=== PATIENT | female | born 1995 | race Caucasian/White ===

== ENCOUNTER 2019-06-13 15:02 | Inpatient (IN) | payer BC, OTHER ==
[~2019-06-13] VITALS: Ht 170.2 cm; Wt 82.1 kg
--- NOTE | ~2019-06-13 | O ---
[facility] [place] [address] OPERATIVE REPORT Name: DONI ALI Room #: 363-P [facility] M.R.#: [id number] Admission: 06/13/19 Attend Phys: Giselle Winter MD Discharge: Date of : 97 Report #: [id number] THIS REPORT FOR: //name// CC: Giselle Winter PREOPERATIVE DIAGNOSIS: Hyperkinesia of the gallbladder. POSTOPERATIVE DIAGNOSIS: Hyperkinesia of the gallbladder. OPERATIVE PROCEDURE DONE: Laparoscopic cholecystectomy. OPERATING SURGEON: Russel Gabriel MD INDICATIONS FOR THE PROCEDURE: The patient is a 23-year-old pleasant female who has multiple medical comorbidities, presented with features of recurrent episodes of right upper quadrant and epigastric pain. A HIDA scan that was done showed features of a hyperkinetic gallbladder. The patient was advised laparoscopic cholecystectomy. The patient showed understanding and agreed to proceed. DESCRIPTION OF PROCEDURE: After explaining to the patient in detail and informed consent was obtained, the patient was identified in the preoperative holding area. The patient was transferred to the operating room and was placed in supine position. After induction of anesthesia, the abdomen was prepped and draped in a sterile fashion. Through a right upper quadrant 1 cm incision and using Optiview technique, peritoneal cavity was entered and pneumoperitoneum was created. Thereafter, under direct vision, another 5 mm trocar was placed in the epigastrium and one in the periumbilical region through the previous incision site and another 5 mm trocar was placed in the right flank. On initial inspection, the gallbladder appeared slightly intrahepatic, but otherwise normal. The gallbladder was retracted and the peritoneal reflection along the neck of the gallbladder was gently dissected off. Soft cystic duct was identified and was isolated from the surrounding structures. Cystic artery was identified and was isolated from the surrounding structures. Cystic duct was then double clipped proximally and single clipped applied distally and was then divided. Cystic artery was then divided in a similar fashion. The gallbladder was gently dissected off the liver bed using hook electrocautery. Absolute hemostasis was achieved. Thorough saline irrigation was given. The gallbladder was retrieved using an EndoCatch through the lateral most incision. Incisions were then closed with 4-0 Monocryl. The 8 mm port site incision was closed with 0 Vicryl for the fascia. Skin was closed with 4-0 Monocryl for the incisions. Approximately about 10 mL of lidocaine and Marcaine mix was injected into all the incisions. The patient was awoken from anesthesia and was transferred to the recovery room in stable condition. ESTIMATED BLOOD LOSS: Minimal. [address] [address] OPERATIVE REPORT Name: DONI LAI Room #: 363-P [facility]#: [id number] Admission: 06/13/19 Attend Phys: Giselle Winter MD Discharge: Date of : 97 Report #: [id number] CONDITION OF THE PATIENT: Stable. FLUIDS GIVEN: Per anesthesia notes. SPECIMEN SENT: Gallbladder. COMPLICATIONS: None. ANESTHESIA: General anesthesia. By: [id number] [id number] Russel Gabriel MD /qian
[2019-06-13 15:04] VITALS: BP 132/77
[2019-06-13 15:21] LABS: URINE BILIRUBIN NEGATIVE (Negative); URINE BLOOD NEGATIVE (Negative); URINE CLARITY CLEAR; URINE COLOR YELLOW; URINE GLUCOSE-RANDOM* NEGATIVE (Negative); URINE KETONES NEGATIVE (Negative); URINE LEUKOCYTES-REFLEX NEGATIVE (Negative); URINE NITRITE-REFLEX NEGATIVE (Negative); URINE PROTEIN (DIPSTICK) NEGATIVE (Negative); URINE SPECIFIC GRAVITY 1.015 (1.005-1.035); URINE UROBILINOGEN 0.2 E.U./dl (0.2-1.0)
[2019-06-13 15:42] LABS: ABSOLUTE NEUTROPHILS 5.9 thou/uL (1.4-8.2); BASOPHILS 0.5 % (0.0-2.0); EOSINOPHILS 0.9 % (0.0-3.0); HEMATOCRIT 37.7 % (37.0-47.0); HEMOGLOBIN 12.3 gm/dL (12.0-15.0); LYMPHOCYTES 16.6 % (24.0-44.0); MCH 29.3 pg (26.0-34.0); MCHC 32.5 g/dL (28.0-37.0); MCV 89.9 fL (80.0-100.0); MONOCYTES 5.5 % (1.0-8.0); PLATELET COUNT 418 thou/uL (150-400); POLYS 76.5 % (36.0-66.0); RBC 4.19 mil/uL (4.20-5.00); RDW 14.6 % (10.5-14.5); WBC 7.6 thou/uL (4.0-11.0)
[2019-06-13 15:49] LABS: CALCIUM 9.8 mg/dL (8.5-10.1); CREATININE 0.7 mg/dL (0.6-1.0); POTASSIUM 3.9 mmol/L (3.5-5.1)
[2019-06-13 15:55] LABS: ALBUMIN 4.1 g/dL (3.4-5.0); TOTAL BILIRUBIN 0.5 mg/dL (<0.1-1.0)
[2019-06-13] MEDS ORDERED: ANECREAM530 GM TOP (16:01)
[2019-06-13] MEDS ORDERED: ZANTAC 150MG T150 M1 PO ×2 (16:01→20:04)
[2019-06-13] MEDS ORDERED: INDERAL LA120 M1 PO (16:03)
[2019-06-13] MEDS ORDERED: MIDODRINE HCL10 MG PO (16:06)
[2019-06-13] MEDS ORDERED: TYLENOL325 M1 PO (16:07)
[2019-06-13] MEDS ORDERED: DEXILANT60 MG PO (16:07)
[2019-06-13] MEDS ORDERED: LEVO-T100 MCG PO (16:08)
[2019-06-13] MEDS ORDERED: ZOLMITRIPTAN ODT5 MG PO (16:09)
[2019-06-13] MEDS ORDERED: AZELASTINE205.5 MCG/ NARES (16:10)
[2019-06-13] MEDS ORDERED: ONDANSETRON ODT8 MG PO (16:10)
[2019-06-13] MEDS ORDERED: BLISOVI 24 FE1 EACH PO (16:10)
[2019-06-13] MEDS ORDERED: SENNA PLUS TAB1 EACH PO (16:11)
[2019-06-13] MEDS ORDERED: FLONASE 0.05%50 MCG NARES (16:11)
[2019-06-13] MEDS ORDERED: VITAMIN D31000 UNIT PO (16:11)
[2019-06-13] MEDS ORDERED: CLARITIN10 M3 PO (16:11)
[2019-06-13] MEDS ORDERED: VENLAFAXINE HCL75 M2 PO (16:12)
[2019-06-13] MEDS ORDERED: COLACE 100 MG100 MG PO (16:12)
[2019-06-13] MEDS ORDERED: IPRATROPIUM BRO15 ML NASAL (16:13)
[2019-06-13 17:40] VITALS: BP 115/87
--- NOTE | 2019-06-13 18:35 | NUR ---
ATTEMPTED TO CALL REPORT AT THIS TIME TO 3W. NURSE NOT AVAILABLE AT THIS TIME AND WILL CALL BACK
[2019-06-13 18:47] VITALS: BP 111/68
[2019-06-13] MEDS ORDERED: AMITIZA8 MCG PO (20:09)
[2019-06-13] MEDS ORDERED: REGLAN 10 MG TA10 MG PO (20:10)
[2019-06-13] MEDS ORDERED: PHENERGAN 25 MG25 M1 PO (20:11)
[2019-06-13] MEDS ORDERED: OXYCODONE HCL20 M1 PO (20:13)
[2019-06-13] MEDS ORDERED: FLEXERIL PO (20:14)
[2019-06-13 20:30] VITALS: BP 111/72
[2019-06-13 23:45] VITALS: BP 114/66
--- NOTE | 2019-06-14 06:27 | NUR ---
PT ARRIVED TO UNIT APPROX 1900. ADMISSION AND ASSESSMENT COMPLETED, CONSENTS SIGNED, MED REC COMPLETED. OBTAINED MEDICATION AND DIET ORDERS FROM DR. MOE. PT A&Ox4, PLEASANT, USES WALKER TO AMBULATE AT HOME; EXTENSIVE MEDICAL AND SURGICAL HISTORY, PT HAS A BINDER WITH HISTORY. FALL PRECAUTIONS IN PLACE. PT HAD BACK SURGERY 05/02/19, CONTINUES TO HAVE MODERATE-HIGH PAIN ALONG WITH NAUSEA; RESUMED HOME DOSES PAIN AND NAUSEA MEDS, DR. MOE DIDN'T ORDER ANY IV PAIN MEDS. IV FLUIDS STARTED THROUGH CHEST PORT. HAS BEEN SR IN 60-70'S OVERNIGHT. NO OTHER CONCERNS, WILL CONTINUE TO MONITOR.
[2019-06-14 07:46] VITALS: BP 129/89
--- NOTE | 2019-06-14 10:45 | NUR ---
ASSESSMENT: CM REVIEWED CHART AND MET WITH PATIENT AND HER MOTHER AT THE BEDSIDE. PT WAS ADMITTED WITH PANCREATITIS/FEVER. PT HAS HX OF POT SYNDROME AND IS ON IV INFUSIONS OF NS DAILY AT HOME. PT LIVES AT HOME WITH HER PARENTS WHO ARE VERY SUPPORTIVE. PT HAS TWO STEPS TO ENTER THE HOME AND ABOUT 20 STEPS WITH A HANDRAIL TO HER BEDROOM. PT REPORTS THAT SHE CURRENTLY HAS ON LICENSE OF [facility] AND GETS IV FLUIDS THROUGH [facility]. CM CONTACTED [facility] TO NOTIFY THEM THAT PATIENT IS HERE AND FAXED CLINICAL. CM ALSO CONTACTED [facility] [phone] TO NOTIFY THEM PATIENT WAS HERE. THEY STATE AT DISCHARGE THEY WILL JUST NEED AN ORDER FOR RESUMPTION OF FLUIDS (CURRENT ORDER IS NORMAL SALINE 1 LITER IV) THROUGH WHATEVER DATE WE WOULD LIKE. PT WILL LIKELY BE HERE THROUGH THE WEEKEND. [facility]:[phone] FAX:[phone] [facility]:[phone].
[2019-06-14 15:56] VITALS: BP 117/79
--- NOTE | 2019-06-14 16:50 | NUR ---
ASSUMED CARE OF PT AT APPROX 0700. PT IS ALERT AND ORIENTED X4, MONITORED ON TELE AND ABLE TO MAINTAIN 02 SAT> 90 ON RA. DENIES SOA. EVEN NONLABORED BREATHING. PRN PAIN MEDICATIONS GIVEN FOR PAIN, WITH PARTIAL RESOLUTION. PRN NAUSEA MEDICATION GIVEN NEEDED, NO VOMITING THIS SHIFT. ASSESSMENT CHARTED. DENIES ANY FURTHER QUESTIONS OR COMMENTS AT THIS TIME. WILL CONT. TO MONITOR.
[2019-06-14 20:03] VITALS: BP 107/75
[2019-06-15 04:29] VITALS: BP 113/65
--- NOTE | 2019-06-15 07:28 | NUR ---
ASSUMED CARE AT 1900. PT REPORTS LOW BACK PAIN 5-6 OUT OF 10; GIVING PAIN MEDS Q4 OVERNIGHT. C/O NAUSEA, TREATED WITH PRN ZOFRAN Q4. C/O MODERATE ITCHING, GIVEN PO BENADRYL ONCE IVF INFUSING THROUGH PORT. CALLS APPROPRIATELY FOR ASSISTANCE TO TOILET. HAS BEEN SR ON TELE 60-09. NO OTHER CONCERNS, SHIFT REPORT GIVEN AT 0700.
[2019-06-15 07:33] VITALS: BP 128/90
--- NOTE | 2019-06-15 09:51 | H ---
[facility] [place] [address] HISTORY AND PHYSICAL Name: DONI LAI Room #: 363-P [facility] IN M.R.#: [id number] Admission: 06/13/19 Attend Phys: Giselle Winter MD Discharge: Date of : 97 Report #: [id number] THIS REPORT FOR: //name// CC: Giselle Winter ADMISSION HISTORY AND PHYSICAL ATTENDING PHYSICIAN: Giselle Winter MD CHIEF COMPLAINT: Abdominal pain and fever. HISTORY OF PRESENT ILLNESS: The patient is a 23-year-old lady who I know from her recent hospitalization for rehab following her back surgery. The patient was seen in the office and started complaining that for the last 4 days, she has been having chills and fever with a fever of 101.4 the day prior. The patient was having excessive sweating and also had noticed that the abdominal pain had gotten worse. The patient was not able to eat anything and had persistent nausea. The patient was feeling sick and extremely weak and was ready to pass out. The patient is on continuous IV infusion for her POT syndrome. The patient was evaluated in the Emergency Room at [facility] and noted to have acute pancreatitis. The patient is now being admitted to the hospital. He is continued on oral pain medications and IV fluids. Overnight, she did notice that she had developed a rash on her upper extremity with itching. She denied having any breathing difficulty. PAST MEDICAL HISTORY: Significant for history of lumbar spinal stenosis, Demond-Danlos syndrome, POT syndrome. ALLERGIES: She is known to be allergic to DEPAKOTE, LATEX AND PENICILLIN. MEDICATIONS: She currently on was Zantac, midodrine, Tylenol, zolmitriptan, Amitiza, metoclopramide, promethazine, oxycodone, cyclobenzaprine, propranolol, Dexilant, levothyroxine, control pill, nasal spray, Zofran, Claritin, vitamin D3 supplements, Atrovent nasal spray and Colace. SOCIAL HISTORY: She is single. She does not smoke or drink alcohol. REVIEW OF SYSTEMS: She denied having any chest pain or breathing difficulty. She did complain of having presyncope and feeling nausea. She also felt that the abdominal incision was feeling more tender. She continues to use spine brace. PHYSICAL EXAMINATION: GENERAL: Young lady who was resting in bed, appeared to be in mild distress secondary to her abdominal pain. VITAL SIGNS: She was afebrile, temperature 36.5, pulse of 59, respiratory rate of 17, blood pressure 129/89, oxygen saturation 96% on room air. [address] [address] HISTORY AND PHYSICAL Name: DONI LAI Room #: 363-P [facility] IN ..#: [id number] Admission: 06/13/19 Attend Phys: Giselle Winter MD Discharge: Date of : 97 Report #: [id number] HEENT: Skull was atraumatic. There was mild pallor, no icterus. Mucosa was moist. NEUROLOGIC: The patient had right subclavicular port for IV infusion. There was a skin rash with erythema on both upper extremities extending onto her neck. LUNGS: Clear to auscultation bilaterally with no wheezing or crackles. HEART: First and second normal. ABDOMEN: The patient had the abdominal incision, which is healing well. There was some induration felt around the incision. There was no discharge. Bowel sounds were sluggish and the patient had epigastric tenderness. NEUROLOGIC: The patient was moving all 4 extremities equally and normally. LABORATORY DATA: On admission showed influenza type A and B, which was negative. White cell count was 7.6, hemoglobin 12.3, hematocrit 37.3 and a platelet count of 418. Sodium was 134, potassium 3.9, chloride of 100, bicarbonate of 23, BUN of 7, creatinine of 0.7, glucose was 114. Lactic acid 1.1, total bilirubin was 0.5, AST of 9, ALT of 8, alkaline phosphatase was 44, lipase was 1087. UA was essentially negative. Blood cultures were pending. CT abdomen and pelvis did not show any inflammation or necrosis of the pancreas. There was mild ileus noted. Chest x-ray was clear with no acute infiltrate. ASSESSMENT: 1. Acute pancreatitis. 2. Postural orthostatic tachycardia syndrome. 3. Skin rash. 4. Lumbar spinal stenosis, status post surgery. PLAN: To continue on clear liquid to full liquid diet and continue on the oral medications. Discussed pain management with the patient and her mom who was at the bedside. We will get a GI consultation with Dr. Robert and get an ultrasound of the gallbladder. Continue with her home medications and monitor her for the skin rash. Continue on Benadryl as needed for the skin rash. <ELECTRONICALLY SIGNED> By: Giselle Winter MD 06/15/19 0951 [id number] Giselle Winter MD /nt
[2019-06-15 15:51] VITALS: BP 126/87
--- NOTE | 2019-06-15 18:10 | NUR ---
PT AMBULATED ROOM AND WAS UP IN CHAIR TODAY. CONTINUE CURRENT CARE.
[2019-06-15 19:47] VITALS: BP 136/91
--- NOTE | 2019-06-16 05:14 | NUR ---
ASSUMED CARE AT 1900. START OF SHIFT PT REPORTS SEVERE NAUSEA CAUSING HER TO DRY-HEAVE. SPOKE WITH DR. GRANT, OBTAINED ORDERS TO SWITCH HER PEPCID AND REGLAN TO IVP DOSES, AND TO GIVE AN ENEMA. PT REPORTED SIGNIFICANT RELIEF OF NAUSEA FROM THE PEPCID AND REGLAN. GAVE A WATER ENEMA ABOUT 2200, PT ABLE TO RETAIN FULL AMOUNT, AND AFTER ABOUT 35 MINUTES WENT TO USE BATHROOM. PASSED GAS, LIGHT BROWN STOOL-COLORED ENEMA FLUID, AND MODERATE AMOUNT OF VERY HARD, DARK STOOL. PT REPORTED FEELING BETTER, AND ASKED TO TAKE A SHOWER SINCE SHE WAS FEELING SOME RELIEF. IVF INFUSING OVERNIGHT. HAVE GIVEN PAIN MEDS x2 TONIGHT, ZOFRAN ONCE. NO OTHER CONCERNS, WILL CONTINUE TO MONITOR.
[2019-06-16 05:34] VITALS: BP 107/58
[2019-06-16 08:32] VITALS: BP 109/70
[2019-06-16 11:36] VITALS: BP 122/82
[2019-06-16 16:10] VITALS: BP 115/70
--- NOTE | 2019-06-16 16:41 | NUR ---
RECEIVED PT'S CARE AROUND 0715; PT. ON BED; SLEEP INTERRUMPTED; AOX4; DURING ASSESSMENT C/O BACK PAIN; 11/14; ST. ABLE TO TOLERATE PAIN; REQUESTED REGLAN IV BEFORE BREAKFAST DUE TO NAUSEA; AM MEDICATION GIVEN; GI AT THE BED SIDE DURING AM; SUGGESTED TO AVOID ZOFRAN; PER DR. GRANT VERBAL ORDER D/C ZOFRAN & ADD RECTAL PHENERGAN; EDUCATED ABOUT THE IMPORTANCE OF AMBULATION; ST. UNDERSTANDING; DURING ROUNDING AROUND 1040 PT. RESTING WITH EYES CLOSED ON BED; REMAINED OF THE IMPORTANCE OF AMBULATION & SITTING ON THE CHAIR; ST. UNDERSTANDING; AROUND NOON PT. AMBULATED ON RAMOS; ABLE TO TOLERATE IT; REMAINED ON CHAIR FOR A FEW HOURS AFTER AMBULATION; AFTER [facility] REQUESTED SOME PRN PAIN MEDICATION (ACETAMINOPHEN); NOTICED NO INTERMEDIATE PAIN MEDICATION; PHYSICIAN NOTIFIED; NO NEW ORDERS; EARLY ON THE AFTERNOON PT. REQUESTED TO BE BACK ON BED TO REST; ABLE TO REST FOR A FEW HOURS; AROUND 1500 PT. REQUESTED TO GO BACK TO CHAIR; ST. DECREASE PAIN; DECREASE NAUSEA; MONITORING; ASSESSMENT CHARGED; FOLLOWING POC; WILL PASS ON REPORT;
[2019-06-16 20:35] VITALS: BP 127/69
--- NOTE | 2019-06-17 04:50 | NUR ---
ASSUMED PT CARE AROUND 1900. A&OX4. VERY PLEASANT AND COOPERATIVE. PT'S MOTHER AT BEDSIDE ALL NIGHT. C/O BACK PAIN AND LLQ ABDOMINAL PAIN. TYLENOL GIVEN FOR PAIN. PT AND HER MOTHER REPORTED THAT PT TOLERATED HER DINNER WELL. NO C/O SIGNIFICANT N/V THIS SHIFT BUT PT IS RECEIVING SCHEDULED METOCLOPRAMIDE. PT SLEPT MOST OF THE NIGHT. RESP EVEN AND UNLABORED. UP W/ SBA AND A WALKER TO BTR. TOLERATED ACTIVITY WELL. FALL PRECAUTIONS IN PLACE. PROGRESSING SLOWLY TOWARD POC GOALS. WILL CONTINUE TO MONITOR FURTHER.
[2019-06-17 06:12] VITALS: BP 113/77
[2019-06-17 07:47] VITALS: BP 125/87
--- NOTE | 2019-06-17 12:05 | NUR ---
PATIENT ABLE TO BATHE AND DRESS INDEPENDENTLY PER PATIENT AND MOTHER REPORT. PATIENT HAS ALL NEEDED EQUIPMENT FOR A SEATED SHOWER FROM RECENT ADMISSION TO [facility]. WILL DISCHARGE. THANK YOU
--- NOTE | 2019-06-17 12:46 | NUR ---
on-going assessment: PT IS SLOWLY PROGRESSING TOWARDS DISCHARGE GOALS. PT CAN DISCHARGE HOME ONCE SHE IS ABLE TO TOLERATE ORAL MEDICATIONS. CM WILL CONTINUE TO FOLLOW TO ASSIST NEEDED AND NOTIFY [facility] AT TIMES OF DISCHARGE.
--- NOTE | 2019-06-17 14:18 | NUR ---
Nutrition: pt admitted with nausea and dx of pancreatitis. RD seen due to dx. GI states likely not pancreatitis but issues related to constipation. Lipase 927. Nausea improving with scheduled reglan prior to meals. Pt with 20-60% intake of meals past 4 days over admit. Recent back surgery and requiring narcotics complicating constipation issues. Hard stool on 06/25 post enema. Stool regimen. Adequate fluids and fiber intake encouraged. Pt reports has been eating better today, less nausea and family also brings in food. Able to order meals. Weights have been stable. Low nutrition risk at present.
[2019-06-17 15:59] VITALS: BP 121/81
--- NOTE | 2019-06-17 16:14 | NUR ---
Assumed care approx. 0700 this AM. Pts mom at bedside all shift. Reports of nausea most of the afternoon and treated once with medication so far-pt refused nausea meds this afternoon and waiting to speak with GI docs. Still no BM noted. Pain treated this AM with tylenol. Oxycodone has yet to be administered on day shift. Pt up with therapy today-steady and balanced on feet. Bathroom privileges given. Pt progression stagnant toward plan of care goals.
[2019-06-17 20:33] VITALS: BP 116/67
[2019-06-18 03:44] VITALS: BP 111/74
--- NOTE | 2019-06-18 05:47 | NUR ---
ASSUMED CARE AT 1900. PT REPORTS MODERATE PAIN, 6 OF 10 IN LOWER BACK AND LLQ OF ABD. REPORTS SOME NAUSEA, BUT STATES IT IS BETTER THAN DURING THE DAY. REPORTS SHE STARTED PASSING GAS AGAIN THIS AFTERNOON, STATING SHE HADN'T HAD ANY GAS SINCE AFTER THE ENEMA ON MONDAY. HAS A PARENT IN THE ROOM WITH HER, GETS UP AND MOVED WITH A WALKER; EDUCATED TO CALL NEEDED. HAS BEEN SR ON TELE. IVF INFUSING, LABS DRAWN VIA PORT THIS AM. NO OTHER CONCERNS, WILL CONTINUE TO MONITOR.
[2019-06-18 08:09] VITALS: BP 117/76
[2019-06-18 11:40] VITALS: BP 119/64
--- NOTE | 2019-06-18 13:49 | NUR ---
ON-GOING ASSESSMENT: PT CONTINUES TO HAVE TROUBLE WITH CONSTIPATION AND NAUSEA AND VOMITTING. PER ATTENDING MAY CONSIDER EGD TO RULE OUT GASTRITIS/ULCER. CM WILL CONTINUE TO FOLLOW.
[2019-06-18 15:43] VITALS: BP 112/74
[2019-06-18 16:09] LABS: IgG 610 mg/dL (700-1600)
--- NOTE | 2019-06-18 16:16 | NUR ---
AM: PT ALERT AND ORIENTED X4. VERY PLEASANT AND FRIENDLY. PT DROWSY AND RESTING. BREAKFAST MADE PT NAUSEATED SO MEDS GIVEN TO REDUCE NAUSEA. PAIN REMAINS 4-6/10 IN LOWER BACK AND 2-3 IN AMBODMEN. MOM AT BEDSIDE. NOON: NAUSEA SUBSIDED AND PT ISMRE COMFORTABLE. PAIN IS BEING MANAGED WELL WITH MEDS AND ICE. AFTERNOON: PT COMFORTABLE AND PAIN IS MANAGED WELL WITH MEDS AND ICE. PT WATCHING TV WITH MOM AT BEDSIDE. WORKING TOWARDS GOALS OF DISCHARGE: INCREAE CALORIC INTAKE AND HAVE REGULAR BOWEL MOVEMENTS
--- NOTE | 2019-06-18 16:21 | NUR ---
Assumed care approx. 0700 this AM. Pt very nauseated most of the shift. Phenergan suppository worked best for pt to get relief, but made pt very drowsy. Pt still fighting lower back pain averaging 4-6 on a 1-10 scale. Orders given by INDIO Benson to give zofran 30 min to a hour before eating and to give the panc enzyme med that's being ordered 30 min before meals. Pt still hasn't had a BM since enema on Monday. Mother at bedside. Plan for EGD tomorrow. Will have pt sign consent. Pt slowly progressing toward plan of care goals.
[2019-06-18 19:39] VITALS: BP 110/66
[2019-06-19 03:39] VITALS: BP 103/61
--- NOTE | 2019-06-19 03:55 | NUR ---
Ambulated around hallway at HS with steady gait. Medicated for low back pain and abdominal pain with some relief. No nausea or vomiting. NPO after MN except meds with little sip of water this am. Making progress towards care plan goals.
[2019-06-19 08:56] VITALS: BP 102/58
--- NOTE | 2019-06-19 15:10 | NUR ---
on-going assessment: PT IS HAVING EGD TODAY. CM WILL CONTINUE TO FOLLOW TO ASSIST NEEDED.
[2019-06-19 15:38] VITALS: BP 118/76
--- NOTE | 2019-06-19 18:56 | P ---
[facility] [place] [address] PROCEDURE REPORT Name: DONI LAI Room #: 363-P [facility] IN M.R.#: [id number] Admission: 06/13/19 Attend Phys: Giselle Winter MD Discharge: Date of : 97 Report #: [id number] THIS REPORT FOR: //name// CC: Giselle Winter MD PROCEDURE: EGD with biopsies and brushings. She is a patient of Dr. Giselle Campbell. INDICATION FOR PROCEDURE: This patient has persistent nausea and vomiting. She may have been an episode of hematemesis versus possible hemoptysis. EGD is being performed to evaluate further. She does have some mild dysphagia. She has had a Manju fundoplication. Informed consent for this procedure was obtained after the risks of the procedure were explained to the patient. The risks include, but are not limited to the following, bleeding, perforation, infection, complications of sedation and the possibility I could miss something. Anesthesia kindly provided deep sedation for this procedure. With the patient in the left lateral decubitus position and adequate sedation obtained, the Olympus upper videoscope was introduced through the upper esophageal sphincter and advanced under direct visualization to the third portion of the duodenum. Findings are noted on withdrawal of the scope. The duodenal mucosa that was visualized to the third portion appears normal. The patient does have bile that is seen in the duodenum. Pylorus, normal mucosa. Antrum, erythematous mucosa. This was very mild erythema. Biopsies are obtained x 2 from the antrum for histopathology to evaluate for Helicobacter pylori infection. Body, normal mucosa. Cardia and fundus, normal mucosa. Retroflex view does reveal a Manju fundoplication that appears to be intact. The scope was then withdrawn into the esophagus. A portion of a pill was seen at the Z-line and it was nudged into the stomach gently with the scope without difficulty. In the more proximal esophagus, there are several adherent white exudative lesions suggestive of Cristina. Brushings were obtained for PIOTR prep to evaluate this further and the most proximal esophagus appears normal. The scope was withdrawn. The patient went to the recovery area in stable condition. She tolerated the procedure well. IMPRESSION: 1. Normal duodenum. 2. Mild antral erythema. Biopsies pending. 3. Intact Manju fundoplication. 4. Exudative esophagitis, suspected in the mid to proximal esophagus. Brushings obtained. [address] [address] PROCEDURE REPORT Name: DONI LAI Shavon Room #: 363-P [facility] IN M.R.#: [id number] Admission: 06/13/19 Attend Phys: Giselle Winter MD Discharge: Date of : 97 Report #: [id number] RECOMMENDATIONS: To await the path report and the PIOTR prep of the brushings from the esophagus. I would recommend resuming her usual medications. Thank you very much once again for allowing me to participate in her care, Dr. Campbell. I did not see anything that was an obvious cause of nausea and vomiting, but biopsies may reveal another source of the symptoms. <ELECTRONICALLY SIGNED> By: Nan Ross DO 06/19/19 [id number] Nan Ross DO /nt
[2019-06-19 19:36] VITALS: BP 120/83
--- NOTE | 2019-06-19 19:58 | NUR ---
PATIENT HAD EGD. NOT ABLE TO TOLERATED DINER DUE TO NAUSEA. UP AD GUTIERREZ. SLIWLY TOWARDS POC GOALS.
--- NOTE | 2019-06-20 03:58 | NUR ---
Visited by several family members last night. She ambulated around hallway. Medicated for pain x1 and nausea med given x 1 with some relief. Kept NPO since PA for PIPIDA scan today. Up ad pj in room with steady gait.Denies any concern at this time. Making progress towards care plan goals.
[2019-06-20 04:08] VITALS: BP 96/56
[2019-06-20 07:20] VITALS: BP 120/76
--- NOTE | 2019-06-20 13:42 | NUR ---
on-going assessment: cm reviewed chart. PT HAD EGD WITH BIOPSY YESTERDAY AND AWAITING BIOPSY RESULTS AND HIDA SCAN. CM WILL CONTINUE TO FOLLOW TO ASSIST NEEDED.
[2019-06-20 16:20] VITALS: BP 122/84
--- NOTE | 2019-06-20 18:39 | NUR ---
ASSUMED PATIENT CARE AT 0700. A/O X4. AMBULATED IN ROOM. NAUSEA NO VOMIT. WARM WATER ENAMA GIVEN. VERY SMALL AMOUNT STOOL. WILL NPO AFTER MIDNIGHT TO HAVE LAPAROSCOPIC CHOLECYSTECTOMY.
[2019-06-20 20:06] VITALS: BP 92/56
--- NOTE | 2019-06-21 02:28 | NUR ---
UP IN ROOM AND RAMOS AD GUTIERREZ. SLEEPING AT PRESENT TIME WITHOUT COMPLAINTS. PLANS FOR SURGERY TODAY. NPO PAST MIDNIGHT. HS SHOWER DONE. WORKING ON GOALS AND PLAN OF CARE FOR NOC. MOM AT BEDSIDE. CONTINUE TO ASSES.
[2019-06-21 04:37] VITALS: BP 106/70
[2019-06-21 07:33] VITALS: BP 117/80
--- NOTE | 2019-06-21 14:25 | NUR ---
PT IS TO HAVE LAP DAVID. PT LIVES AT HOME WITH HER PARENTS AND IS CURRENT WITH [facility] WHICH SHE WILL RESUME AT DISCHARGE WELL [facility] WHICH PROVIDES HER FLUIDS FOR HX OF POTS. IF PATIENT IS STABLE TO DISCHARGE OVER THE WEEKEND CONTACT [facility] AND NOTIFY THEM WELL FAX THE D/C ORDERS AND SUMMARY. ALSO CONTACT [facility] AT NUMBER LISTED BELOW AND SPEAK TO [facility] PHARMACIST AND WILL NEED A VERBAL ORDER FOR RESUMPTION OF FLUIDS. (CURRENT ORDER IS NORMAL SALINE 1 LITER IV) THROUGH WHATEVER DATE WE WOULD LIKE. PT WILL LIKELY BE HERE THROUGH THE WEEKEND. [facility]:[phone] FAX:[phone] [facility]:[phone].
--- NOTE | 2019-06-21 18:22 | NUR ---
LAP DAVID DELAYED UNTIL TOMORROW. OK TO EAT. NPO AFTER MN. PT FRUSTRATED BY AGREEABLE.
[2019-06-21 20:05] VITALS: BP 103/61
--- NOTE | 2019-06-21 20:06 | PATH ---
[facility] [address] [place] [address] PATHOLOGY RPT PROCEDURE Name: DONI LAI Shavon Room #: 363-P [facility] IN M.R.#: [id number] Admission: 06/13/19 Date of : 97 Discharge: Report #: [id number] Path Case #: [id number] [facility] Accession Number: [id number] . 01 Material submitted: . stomach - BIOPSY GASTRIC R/O H. PYLORI . 01 Clinical history: . Nausea, pancreatitis, R/O H. pylori . 02 Diagnosis: "BX gastric R/O H. pylori", biopsy: - Gastric mucosa with mild reactive changes and mild chronic inflammation. - Negative H. pylori immunohistochemical stain (block A1); control reacted appropriately. (CLW:pit; 06/21/2019) QTP 06/21/2019 135 Local . 02 Electronically signed: . Chery Joseph MD, Pathologist NPI- [id number] . 01 Gross description: . The specimen is received in formalin, labeled "Doni Lai, gastric biopsy, R/O H. pylori". Received is a segment of pale tomas soft tissue measuring 0.4 cm in maximum dimensions. The specimen is submitted entirely in cassette A1. (CAA; 06/20/2019) QA/QA 06/20/2019 0955 Local . 02 Pathologist provided ICD-10: K29.50 . 02 CPT . 046348, [id number] Specimen Comment: A courtesy copy of this report has been sent to [phone] Specimen Comment: Report sent to Performed at: [address], [place] [id number] MD Greg Lafleur MD Phone: [phone] Performed at: [address], [place] [id number] MD Honey Keller MD Phone: [phone]
--- NOTE | 2019-06-22 02:24 | NUR ---
Patient is making slow progresss towards her D/C goals. She reported nausea w/o vomiting this evening and was administered zofran. Later, patient reported continuing nausea and pain; she was administered promethazine and oxy to partial relief.
[2019-06-22 04:45] VITALS: BP 96/59
[2019-06-22 07:29] VITALS: BP 101/60
--- NOTE | 2019-06-22 10:54 | NUR ---
THIS CONTROL CLERK AUDITING MET THE PARENTS OF THE PATIENT IN THE SURGERY WAITING ROOM, WHILE SHE WAS IN SURGERY ON A MONDAY. WE DID LIFE REVIEW AND DISCUSSED THE MEDICAL CHALLENGES THE FAMILY HAS GONE THROUGH JUST THIS PAST YEAR. WE CONCLUDED IN PRAYER.
[2019-06-22 12:41] VITALS: BP 105/68
[2019-06-22 15:35] VITALS: BP 97/60
--- NOTE | 2019-06-22 16:41 | NUR ---
Assumed care approx. 0700 this AM. Pt taken for lap dwain this AM and tolerated well per report. Pt struggling with pain management. Dr. Conley called today to request an order to give AM meds that were held due to NPO status & to change Oxycodone order-All orders recieved plus an order to DC IV fentanyl. Pt has't complained of much nausea, and stated that she has actually had quite an appetite since post-surgery. Pt assistance to bathroom via pt mother as the pt is in a lot of pain & struggling to ambulate and turn in bed adequately without assistance. Pt slowly progressing toward plan of care goals.
[2019-06-22 19:42] VITALS: BP 107/67
[2019-06-22 23:30] VITALS: BP 118/75
[2019-06-23 06:01] VITALS: BP 129/82
--- NOTE | 2019-06-23 08:24 | NUR ---
progress pt a/o x4 pain controlled with oral meds q4 lap sites c/d/i with surgical glue intact. up with sba voiding qs, passing flatus. tolerating diet ivf's infusing as ordered possibly discharge home today or tomorrow.
[2019-06-23] MEDS ORDERED: ZOFRAN4 MG PO (10:18)
[2019-06-23] MEDS ORDERED: OXYCODONE HCL10 MG PO (10:18)
[2019-06-23] MEDS ORDERED: PANCREAZE DR 11 EAC2 PO (10:19)
[2019-06-23] MEDS ORDERED: AMITIZA 24 MCG24 MC1 PO (10:19)
[2019-06-23] MEDS ORDERED: Transderm-Scop 1MG/7 TRANSDERM (10:20)
[2019-06-23 10:30] VITALS: BP 129/82
--- NOTE | 2019-06-23 11:57 | NUR ---
ASSUMED CARE OF PT AT 0700. PT AOX4 REPORTS FEELING MUHC BETTER, APPETITE AND NAUSEA IMPROVED. OK FOR D/C PER PHYSICIAN. [facility] NOTIFIED BY PHONE AND DC ORDERS AND SUMMARY FAXED. [facility] NOTIFIED AND VERBAL ORDER GIVEN FOR RESUMPTION OF FLUIDS AND CONTINUED PORT CARE. FAMILY AT BEDISDE DURING D/C EDUCATION. PT AND FAMILY UNDERSTANDING AND AGREEABLE.
--- NOTE | 2019-06-24 13:20 | D ---
[facility] [place] [address] DISCHARGE SUMMARY Name: DONI LAI Room #: 363-P [facility] IN ..#: [id number] Admission: 06/13/19 Attend Phys: Giselle Winter MD Discharge: 06/23/19 Date of : [birth year] Report #: [id number] THIS REPORT FOR: //name// CC: Giselle Winter FINAL DIAGNOSES: 1. Gastritis. 2. Gallbladder dysfunction. 3. Chronic constipation due to medications. 4. Abdominal pain. 5. Elevated lipase, unclear etiology. 6. History of postural orthostatic tachycardia syndrome. 7. 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 PROCEDURES: 1. CT abdomen. 2. EGD. 3. HIDA scan. 4. Lap dwain. HOSPITAL COURSE: The patient was admitted with abdominal pain and intractable vomiting. The GI Service was involved and helped establish a diagnosis of gastritis based on EGD and gallbladder dysfunction based on HIDA scan findings, but also findings of bile in the stomach on EGD. Ultimately, the plan was for laparoscopic cholecystectomy, which she tolerated without incident. Postprocedure, her nausea symptoms were much improved and she was tolerating a regular diet. Biopsy of the stomach revealed gastritis, but no H. pylori. A fungal smear from the esophagus culture was still pending. Otherwise, her chronic medical conditions were managed in the same fashion. I talked to her and her parents about decreasing her narcotic use and at the time of discharge we will decrease her down to oxycodone 10 mg as needed for pain. PHYSICAL EXAMINATION: GENERAL: On the day of discharge, she was resting comfortably in bed. VITAL SIGNS: Stable. LUNGS: Clear. HEART: Regular. ABDOMEN: Soft, normoactive bowel sounds. EXTREMITIES: No edema. DISPOSITION: She is discharged to home with home health. Diet and activity as tolerated. She has home IV infusion therapy. Follow up with Dr. Winter and Dr. Gabriel and Dr. Morel within 1-2 weeks. DISCHARGE MEDICATIONS: Amitiza 25 mg twice a day, pancreatic enzyme 10,500 units 3 caps with meals, scopolamine patch every 3 days, oxycodone 10 mg q. 6 hours p.r.n. pain, oral Zofran p.r.n., Lidoderm patch, propranolol [place] [address] [address] DISCHARGE SUMMARY Name: DONI LAI Shavon Room #: 363-P [facility] IN M.R.#: [id number] Admission: 06/13/19 Attend Phys: Giselle Winter MD Discharge: 06/23/19 Date of : [birth year] Report #: [id number] b.i.d., midodrine 10 mg with meals, Tylenol, Dexilant 60 mg b.i.d., Levoxyl 112 mcg a day, Imitrex as needed, oral control, Astelin nasal spray, Claritin, Flonase nasal spray, Senokot, vitamin D, Effexor XR 75 mg daily, Phenergan p.r.n. She is to stop Zantac, Colace, Reglan, oxycodone 20 and Flexeril. <ELECTRONICALLY SIGNED> By: Clayton Conley MD 06/24/19 1320 1026 1036 Clayton Conley MD /nt
--- NOTE | 2019-06-26 14:06 | PATH ---
[facility] [address] [place] [address] PATHOLOGY RPT PROCEDURE Name: DONI LAI Room #: 363-P [facility] IN M.R.#: [id number] Admission: 06/13/19 Date of : [birth year] Discharge: 06/23/19 Report #: [id number] Path Case #: [id number] [facility] Accession Number: [id number] . 01 Material submitted: . gallbladder - GALLBLADDER . 01 Clinical history: . Biliary dyskinesia . 02 Diagnosis: Gallbladder, cholecystectomy: - Mild chronic cholecystitis. - Minute reactive lymph node. . (IUV:mml; 06/25/2019) QL 06/25/2019 1632 Local . 02 Electronically signed: . Honey [place] MD, Pathologist NPI- [id number] . 01 Gross description: . The specimen is received in formalin, labeled "Doni Lai, gallbladder", is a is an intact gallbladder measuring 5.7 cm in length and 2.0 cm in maximum diameter with a glistening, smooth and predominantly purple serosa. A 0.4 x 0.2 x 0.2 cm soft lymph node is identified in the region of gallbladder neck. The cystic duct is patent. The gallbladder lumen contains predominantly green-yellow viscous bile and no discrete calculi. The mucosa is tomas-brown, granular and with no recognizable cholesterolosis. The wall is 0.1 cm in average thickness. Representatively submitted in A1. ([facility]; 06/24/2019) [facility] 06/24/2019 1756 Local . 02 Pathologist provided ICD-10: K81.1 . 02 CPT . 287614 Specimen Comment: A courtesy copy of this report has been sent to [phone] Specimen Comment: Report sent to Performed at: [address] [id number] MD Greg Lafleur MD Phone: [phone] Performed at: 02 [place] [address] PATHOLOGY RPT PROCEDURE Name: DONI LAI Room #: 363-P [facility] IN M.R.#: [id number] Admission: 06/13/19 Date of : [birth year] Discharge: 06/23/19 Report #: [id number] Path Case #: [id number] [address] [place], [place] [id number] MD Honey [place] MD Phone: [phone]
== END 2019-06-23 12:23 | disposition home health service (06) | DRG 356 ==
LOC: ER 15:02 → EROBS 17:31 → 3W 17:31
PROVIDERS: Nurse Practitioner; Nurse Practitioner Family; ADMIT Internal Medicine
PROC: 0DD28ZX Extraction of Middle Esophagus, Via Natural or Artificial Opening Endoscopic, Diagnostic (ICD-10-PCS; principal; 2019-06-19)
PROC: 0DD18ZX Extraction of Upper Esophagus, Via Natural or Artificial Opening Endoscopic, Diagnostic (ICD-10-PCS; principal; 2019-06-19)
PROC: 0DB78ZX Excision of Stomach, Pylorus, Via Natural or Artificial Opening Endoscopic, Diagnostic (ICD-10-PCS; principal; 2019-06-19)
PROC: 0FT44ZZ Resection of Gallbladder, Percutaneous Endoscopic Approach (ICD-10-PCS; 2019-06-22)
DX: K29.71 Gastritis, unspecified, with bleeding (principal); K85.90 Acute pancreatitis without necrosis or infection, unspecified; Q79.60 Ehlers-Danlos syndrome, unspecified; K82.8 Other specified diseases of gallbladder; K59.03 Drug induced constipation; I49.8 Other specified cardiac arrhythmias; R21 Rash and other nonspecific skin eruption; G43.909 Migraine, unspecified, not intractable, without status migrainosus; K58.1 Irritable bowel syndrome with constipation; K21.0 Gastro-esophageal reflux disease with esophagitis; J30.0 Vasomotor rhinitis; M41.9 Scoliosis, unspecified; M19.90 Unspecified osteoarthritis, unspecified site; T40.695A Adverse effect of other narcotics, initial encounter; Y92.89 Other specified places as the place of occurrence of the external cause; Z79.899 Other long term (current) drug therapy; Z98.1 Arthrodesis status; Z88.8 Allergy status to other drugs, medicaments and biological substances; Z91.040 Latex allergy status; Z88.0 Allergy status to penicillin; Z86.010 Personal history of colon polyps; Z79.891 Long term (current) use of opiate analgesic
CPT/HCPCS: 10879; 50101; 50411; 50555; 51489; 52265; 52266; 53307; 54022; 54118; 55245; 56462; 56525; 56526; 57257; 62110; 62900; 70005

== ENCOUNTER 2019-06-28 18:34 | Inpatient (IN) | payer BC, OTHER ==
[~2019-06-28] VITALS: Ht 170.2 cm; Wt 78.9 kg
--- NOTE | ~2019-06-28 | H ---
[facility] [place] [address] HISTORY AND PHYSICAL Name: DONI LAI Room #: 439-P ADM IN M.R.#: [id number] Admission: 06/28/19 Attend Phys: Kleber Zee Discharge: Date of : 97 Report #: [id number] THIS REPORT FOR: //name// CC: Demarco Desai Maggy DATE OF SERVICE: 06/29/2019 CHIEF COMPLAINT: This is a delightful 23-year-old female with progressive nausea and vomiting. HISTORY OF PRESENT ILLNESS: This is an extremely complicated situation in a patient with POTS syndrome along with Demond-Danlos syndrome, who recently in the end of April had a lumbar surgery that required a posterior anterior approach and since that time, has had significant problems with nausea, vomiting, abdominal pain and discomfort and has even had her gallbladder removed, which initially may have helped, but is no longer helping and she continues to have ongoing symptoms and in my opinion, the beckman is her markedly elevated lipase at 1500. This has been persistent. CT imaging last admission; however, showed that it was the pancreas itself on visual inspection appeared to be normal. PAST MEDICAL HISTORY: Note for those findings in the HPI plus she has a Chiari malformation with spina bifida occulta, and longstanding history of IBS. She has had reflux that has required a Manju fundoplication, polycystic ovarian syndrome, sinus issues, has had previous hip labral repairs bilaterally, and does have a port. MEDICATIONS: Oxycodone, Zofran, Amitiza, Pancreaze, and Transderm Scopolamine. ALLERGIES: SHE HAS ALLERGIES TO DEPAKOTE, LATEX, AND PENICILLIN. SOCIAL HISTORY: She is disabled at this point. No smoking or alcohol. REVIEW OF SYSTEMS: Mainly related to her abdomen, otherwise negative. PHYSICAL EXAMINATION: GENERAL: Shows her to be in no distress. She is awake and alert and oriented. She is accompanied by her father. VITAL SIGNS: Stable. HEENT: Otherwise, negative. NECK: Supple, without thyromegaly or adenopathy. CHEST: Clear. CARDIOVASCULAR: Showed a regular rate and rhythm without murmur. ABDOMEN: Showed the two surgical areas both laparoscopic cholecystectomy scars and the lumbar scars anteriorly, which are well healing. [address] [address] HISTORY AND PHYSICAL Name: DONI LAI Room #: 9 ADM IN M.R.#: [id number] Admission: 06/28/19 Attend Phys: Kleber Zee Discharge: Date of : 97 Report #: [id number] EXTREMITIES: No cyanosis, clubbing, or edema. No obvious Demond-Danlos syndrome findings. LABORATORY PARAMETERS: Show mild anemia with ____ a lipase level of 1500. ASSESSMENT: 1. This is a very complicated situation, but at this point, I think this patient has pancreatitis and so we need better definition as to the etiology since she does not drink and recently had a cholecystectomy, so the usual causes of biliary and alcohol seemed to not be contributing here, which then would raise the question about an inflammatory and/or genetic predisposition especially because of her unusual medical history in her mother who has myasthenia gravis. We will also need to rule out other causes of pancreatitis that could be on the basis of a structural malformation like pancreatic divisum or pancreatic stricture. 2. Demond-Danlos. 3. POTS syndrome. PLAN: At this point, I think that her pancreatitis is a real phenomenon and I have discussed with GI people and we are going to be proceeding with endoscopic ultrasound and as far as treatment, consider a nasal jejunostomy tube. By: 1118 [id number] Demarco Yun MD /nt
[~2019-06-28 18:34] MED LIST: AMITIZA 24 MCG24 MC1 PO; AMITIZA8 MCG PO; ANECREAM530 GM TOP; AZELASTINE205.5 MCG/ NARES; BLISOVI 24 FE1 EACH PO; CLARITIN10 M3 PO; COLACE 100 MG100 MG PO; DEXILANT60 MG PO; FLEXERIL PO; FLONASE 0.05%50 MCG NARES; INDERAL LA120 M1 PO; IPRATROPIUM BRO15 ML NASAL; LEVO-T100 MCG PO; MIDODRINE HCL10 MG PO; ONDANSETRON ODT8 MG PO; OXYCODONE HCL10 MG PO; OXYCODONE HCL20 M1 PO; PANCREAZE DR 11 EAC2 PO; PHENERGAN 25 MG25 M1 PO; REGLAN 10 MG TA10 MG PO; SENNA PLUS TAB1 EACH PO; TYLENOL325 M1 PO; Transderm-Scop 1MG/7 TRANSDERM; VENLAFAXINE HCL75 M2 PO; VITAMIN D31000 UNIT PO; ZANTAC 150MG T150 M1 PO; ZOFRAN4 MG PO; ZOLMITRIPTAN ODT5 MG PO
[2019-06-28 18:38] VITALS: BP 109/75
--- NOTE | 2019-06-28 20:08 | NUR ---
Port is having problems drawing but is infusing ok. mechanic recovery checked for drawing for labs but still having same problem. Pt is ok with reaccessing PORT.
[2019-06-28 20:32] LABS: ABSOLUTE NEUTROPHILS 2.9 thou/uL (1.4-8.2); BASOPHILS 0.9 % (0.0-2.0); EOSINOPHILS 2.5 % (0.0-3.0); HEMATOCRIT 32.6 % (37.0-47.0); HEMOGLOBIN 10.8 gm/dL (12.0-15.0); LYMPHOCYTES 27.9 % (24.0-44.0); MCH 29.6 pg (26.0-34.0); MCHC 33.1 g/dL (28.0-37.0); MCV 89.3 fL (80.0-100.0); MONOCYTES 7.7 % (1.0-8.0); PLATELET COUNT 265 thou/uL (150-400); RBC 3.65 mil/uL (4.20-5.00); RDW 14.5 % (10.5-14.5); WBC 4.7 thou/uL (4.0-11.0)
[2019-06-28 20:50] LABS: CALCIUM 8.9 mg/dL (8.5-10.1); CREATININE 0.7 mg/dL (0.6-1.0); POTASSIUM 3.6 mmol/L (3.5-5.1)
[2019-06-28 20:51] LABS: URINE BILIRUBIN NEGATIVE (Negative); URINE BLOOD NEGATIVE (Negative); URINE CLARITY CLEAR; URINE COLOR YELLOW; URINE GLUCOSE-RANDOM* NEGATIVE (Negative); URINE KETONES NEGATIVE (Negative); URINE LEUKOCYTES-REFLEX NEGATIVE (Negative); URINE NITRITE-REFLEX NEGATIVE (Negative); URINE PROTEIN (DIPSTICK) NEGATIVE (Negative); URINE UROBILINOGEN 0.2 E.U./dl (0.2-1.0)
[2019-06-28 20:57] LABS: ALBUMIN 3.6 g/dL (3.4-5.0); TOTAL BILIRUBIN 0.4 mg/dL (<0.1-1.0); TOTAL PROTEIN 6.9 g/dL (6.4-8.2)
[2019-06-28 21:53] VITALS: BP 115/74
[2019-06-28 22:20] VITALS: BP 115/74
[2019-06-28 22:37] LABS: MAGNESIUM 2.1 mg/dL (1.8-2.4); PHOSPHORUS 3.8 mg/dL (2.5-4.9)
[2019-06-28 22:40] VITALS: BP 116/72
[2019-06-29 04:00] VITALS: BP 127/77
--- NOTE | 2019-06-29 06:18 | NUR ---
ASSUMED PT CARE ON 06/19/19 APPROX 2320. PT HAS FAMILY COME TO THE FLOOR WITH HER BUT HER FATHER STAYS. PT WAS ALERT AND ORIENTED X 4. PT IS UP AB GUTIERREZ. PT IS NPO I CALLED DR CANCHOLA TO GET FLUID ORDERS BECAUSE HER ORDERS FROM THE ER WERE DISCONTINUED. HER FATHER WAS FRUSTRATED BECAUSE SHE HAS BEEN ON FLUIDS FOR UPWARDS OF 8 WEEKS. I HAD TO CALL SUSHANT BACK TO GET NAUSEA AND PAIN MEDICATION TO HOLD HER OVER UNTIL THE AM VISIT. I GAVE THE PT NAUSEA AND AND PAIN. WILL CONTINUE TO MONITOR.
--- NOTE | 2019-06-29 06:49 | NUR ---
THIS NURSE AGREES WITH THE NOTE AND ASSESSMENT OF THIS PATIENT.
[2019-06-29 08:35] VITALS: BP 110/73
[2019-06-29 15:02] LABS: CALCIUM 9.4 mg/dL (8.5-10.1); CREATININE 0.8 mg/dL (0.6-1.0); POTASSIUM 3.7 mmol/L (3.5-5.1)
[2019-06-29 17:19] VITALS: BP 133/87
[2019-06-29 20:15] VITALS: BP 109/56
--- NOTE | 2019-06-29 21:10 | NUR ---
PATIENT ALERT AND ORIENTED WITH FATHER, MEGAN, AT BEDSIDE DURING THE NIGHT IN COT AND DURING THE DAY TODAY. PATIENT MOTHER, GRANDMOTHER, BROTHER AND [id number] (NURSE AT [facility]) AT BEDSIDE THIS AFTERNOON. GI AT BEDSIDE THIS AFTERNOON AND SPOKE WITH ENTIRE FAMILY ABOUT TREATMENT PLAN. PATIENT UP WITH FATHER WALKING IN HALLWAY TODAY. WHEN SHE FEELS BETTER SHE IS ABLE TO WALK. PATIENT ATE LUXEMBOURGISH ICE THIS EVENING.
[2019-06-30 00:11] VITALS: BP 102/57
--- NOTE | 2019-06-30 02:51 | NUR ---
ASSUMED CARE OF PT @1900 PT ASSESSED AT START OF SHIFT WITH C/O NAUSEA PHENERGAN AND REGLAN GIVEN Q6 THIS SHIFT SEE EMAR. GELACIO AT BEDSIDE TONIGHT. PORTHA CATH IN RT CHEST INTACT NO BLOOD RETURN IV FLUIDS INFUSING. PT TAKES TYLENOL FOR PAIN AND TOLERATES IT WELL. WILL CONT TO MONITOR LABS FOR LIPASE LEVEL AND FOLLOW UP WITH POC TILL EOS.
[2019-06-30 04:30] VITALS: BP 107/55
[2019-06-30 08:10] VITALS: BP 126/76
[2019-06-30 11:56] LABS: CALCIUM 9.6 mg/dL (8.5-10.1); CREATININE 0.8 mg/dL (0.6-1.0); POTASSIUM 3.7 mmol/L (3.5-5.1)
--- NOTE | 2019-06-30 14:17 | NUR ---
VAT CONSULTED FOR THIS PT WITH A PORT IN HER RT CHEST. SHE HAS BEEN IN THE HOSPITAL SINCE 06/27/19, ONLY AWARE TODAY. FLUSHED LINE MULTIPLE TIMES WITH A BRISK BLOOD RETURN OCCAISIONALLY. ASKED MD FOR CATHFLO ORDER. SENIOR [employer] CONSULTANT WILL INSTILL WHEN IT ARRIVES TO THE FLOOR. CXR REVEALED TIP AT THE CAJ AND IN GOOD POSITION.
--- NOTE | 2019-06-30 16:05 | NUR ---
Alert and oriented to self. Patent kept talking to self. Patient became agitated when the stuff tried to feed him with his breakfast, but finished 70% of the breakfast after the daughter tried; did not eat much for lunch, finished 20% so far, the family asked the stuff to keep trying to feed the patient every once a while. During the breakfast, the patient coughed, the duaghter asked to stuff to pass it on to the other nurses that the cough was normal, no chocking. vss, afebrile. lab reviewed, daughter and bedside. will keep monitoring.
--- NOTE | 2019-06-30 16:11 | NUR ---
AO, calm and pleasant; nausea, refused breakfast from the kitchen, but took one bottle of fruit ice of orange taste. no vomitting. family bed side, vss, afebrile. patient on chair, IVF infusion. mom bed side. Lab reviewed, will keep monitoring.
[2019-06-30 20:25] VITALS: BP 132/91
[2019-07-01] VITALS: BP 112/73
--- NOTE | 2019-07-01 04:22 | NUR ---
PT ASSESSED AT START OF SHIFT A&OX4 WITH C/O NAUSEA MEDS GIVEN SEE EMAR. FLUIDS INFUSING AND PORT A CATH INTACT. PT COMPLAINED OF MIGRAINE CALLED AND SPOKE TO DR CANCHOLA TO RESTART HOME MIGRAINE MEDICATION. DAD AT BEDSIDE FOR THE NIGHT. CALL LIGHT WITHIN REACH WILL CONT TO MONITOR TILL EOS.
[2019-07-01 05:05] VITALS: BP 102/56
[2019-07-01 07:16] VITALS: BP 130/85
--- NOTE | 2019-07-01 10:29 | NUR ---
ASSUMED CARE OF PT AT 0700. PT HAS DIARRHEA THIS AM AND REFUSED STOOL SOFTNER. PT ALSO REFUSED VENLAFAXINE, DUE TO NOT BEING ABLE TO EAT AND THE MEDICATION UPSETTING THEIR STOMACH. PT IS AMBULATORY. PTS PAIN IS BEING CONTROLLED BY MEDICATION, SEE EMAR. PT IS ON A LIQUID DIET, BUT REFUSES ANYTING BUT WATER, PT ALSO STATED THAT SHE HAS BEEN LOSING ALOT OF WEIGHT. PT HAS R CHEST PORT WITH FLUIDS RUNNING AT 100MLS/HR, CLEAN, DRY AND INTACT. PTS NAUSEA/ VOMITING IS BEING CONTROLLED BY MEDICATION, SEE EMAR. PT IS NOT A FALL RISK. CALL LIGHT IS WITHIN REACH AND THE BED IS IN THE LOWEST POSITION. PT MAY HAVE NG TUBE PLACED TODAY. WILL CONTINUE TO MONITOR THE PT.
--- NOTE | 2019-07-01 15:05 | NUR ---
PT ADMITTED RELATED TO PANDREATITIS, UNABLE TO TOLERATE PO. CM MET WITH PT AT BEDSIDE THIS DAY PT IS A&O X4. CM ROLE INTRODUCED. PT INDICATED SHE LIVES IN A HOUSE WITH HER PARENTS WITH 2 STEPS TO ENTER AND 20 STEPS TO HER BEDROOM INSIDE. PT INDICATED SHE HAD BEEN INDEPENENT WITH GAIT AND ADLS TITLE ONE TEACHER BUT THAT SHE HAD BEEN NEEDING SOME ADDITIONAL ASSISTANCE SINCE BACK SURGERY AND SURGERY MONDAY. SHE HAD BEEN ON SERVICE WITH [facility] AND HAD BEEN GETTING DAILY IV INFUSION FOR POTS THROUGH [facility] OF 1 LITER IV NORMAL SALINE. PT INDICATED SHE UNDERSTANDS THEY ARE GOING TO BE PUTTING AN [place] TUBE IN PLACE. CM TO FOLLOW INDICATED WITH DC PLANNING.
[2019-07-01 16:32] VITALS: BP 113/74
[2019-07-01 19:34] VITALS: BP 126/84
[2019-07-02 03:15] VITALS: BP 102/55
--- NOTE | 2019-07-02 03:48 | NUR ---
ASSUMED PT CARE ON 07/01/19 APPROX 1914. PT IS ALERT AND ORIENTED. PT IS UP AD GUTIERREZ. FATHER IS AT BEDSIDE. PT VOICES THAT SHE CAN KEEP DOWN FOOD. PT STATES THAT SHE DOES NOT WANT THE NG TUBE. PT IS CURIOUS ABOUT CROHN'S DISEASE. PT TAKES ALL MEDS BUT REFUSES TO TAKE THE OXYCODONE. I OFFERED TO MOVE THE PT TO A DIFFERENT ROOM WITH WORKING HEAT/AC. PT STATES THAT SHE DOES NOT WANT TO SWITCH ROOMS BECAUSE SHE'S CONFORTABLE WITH HER BLANKETS. PT IS LOOKING FORWARD TO DISCHARGE BEFORE THE HOLIDAY. WILL CONTINUE TO MONITOR.
[2019-07-02 08:04] VITALS: BP 127/81
[2019-07-02 08:32] LABS: CALCIUM 9.1 mg/dL (8.5-10.1); CREATININE 0.8 mg/dL (0.6-1.0)
[2019-07-02 08:34] LABS: POTASSIUM 2.8 mmol/L (3.5-5.1)
[2019-07-02 13:34] LABS: CALCIUM 9.9 mg/dL (8.5-10.1); CREATININE 0.6 mg/dL (0.6-1.0); MAGNESIUM 1.9 mg/dL (1.8-2.4)
[2019-07-02 13:35] LABS: POTASSIUM 4.2 mmol/L (3.5-5.1)
[2019-07-02] MEDS ORDERED: PREDNISONE 20 M20 M1 PO (14:42)
--- NOTE | 2019-07-02 14:42 | NUR ---
Assumed care for pt at 0700. Pt is AOx4, no c/o pain at this time. Pt is tolerating reg diet. Pt is up ad pj, VSS, right chest portal cath is patent. Call light/personal items within reach. Will continue to monitor.
[2019-07-02 14:51] VITALS: BP 127/81
--- NOTE | 2019-07-03 12:13 | HC ---
[facility] [place] [address] CONSULTATION Name: DONI LAI Room #: 433-I [facility] IN M.R.#: [id number] Admission: 06/28/19 Attend Phys: Kleber Zee Discharge: 07/02/19 Date of : 97 Report #: [id number] THIS REPORT FOR: //name// CC: Hilton Mishra MD DATE OF SERVICE: 06/29/2019 HISTORY OF PRESENT ILLNESS: The patient is a 23-year-old female who is known to me from recent hospitalization. She has a very complex history, which includes Demond-Danlos syndrome as well as POTS syndrome who underwent lumbar surgery that required both anterior and posterior approach following which she had significant problems with abdominal pain, nausea, vomiting. Last hospitalization I was involved for a period of time, we tried multiple different antinausea medications without much improvement. She was noted also to have an elevated lipase at approximately 1000 at that time, which slowly slightly did decrease. No previous history of pancreatitis. CT scan of the abdomen and pelvis at that time showed a normal pancreas, gallbladder was also normal. However, she underwent a PIPIDA scan that showed a normal ejection fraction 90%; however, the patient was symptomatic with CCK injection. Therefore, she underwent a laparoscopic cholecystectomy and initially postoperatively was feeling somewhat better with much less nausea, was tolerating a regular diet, was not having predictable pain after her surgery for several days. She then began having further recurrent nausea as well as what she describes is dry heaves as she has had a previous Manju fundoplication so it is difficult for her to vomit. She has had weight loss of approximately 15 pounds over the last week. She has had issues with chronic constipation. Last bowel movement was on Monday. Previously during last hospitalization and following last surgery, the patient was requiring enemas in order to have a bowel movement. She has not required that recently. She denies any blood in her stools. She denies any dysphagia or odynophagia. In the past, she was on a scopolamine patch; however, this was held and she was having some feeling of fatigue in general. Reglan was being used in IV form last hospitalization with some benefit. Zofran has never been very helpful. Phenergan has been somewhat helpful in the past for the patient. Her lipase on admission at this time is 1536, today is 1128. The patient denies any alcohol history whatsoever. No recent new medications in general. She has now been off her narcotics for several days and is only using Tylenol on a p.r.n. basis. Previous IgG workup subclasses were normal to rule out the possibility of autoimmune pancreatitis. The patient has not had a previous endoscopic ultrasound. PAST MEDICAL HISTORY: Demond-Danlos, POTS syndrome, possible pancreatitis, recent laparoscopic cholecystectomy, symptoms with CCK injection. She has had [address] [address] CONSULTATION Name: DONI LAI Room #: 433-I [facility] IN M.R.#: [id number] Admission: 06/28/19 Attend Phys: Kleber Zee Discharge: 07/02/19 Date of : 97 Report #: [id number] Chiari malformation with spina bifida, history of irritable bowel syndrome, reflux, status post Manju fundoplication, polycystic ovarian syndrome, sinusitis history, previous labral repairs of her hips bilaterally. She has a Port-A-Cath in place. ALLERGIES: To DEPAKOTE, LATEX and PENICILLIN. REVIEW OF SYSTEMS: As per HPI. FAMILY HISTORY: Negative for colon cancer or inflammatory bowel disease. MEDICATIONS ON ADMISSION: ____, Tylenol p.r.n., Phenergan p.r.n., Inderal, Dexilant 60 mg b.i.d., Synthroid, iron supplement, azelastine nasal spray, Claritin, fluticasone, Senna, venlafaxine, vitamin D3, Ventolin. PHYSICAL EXAMINATION: VITAL SIGNS: Temperature is 98.6, pulse 79, blood pressure is 110/73, respiratory rate is 17. GENERAL: She is alert and oriented x 3, in no acute distress. HEENT: Sclerae nonicteric. Oropharynx clear. NECK: Supple, without lymphadenopathy. CARDIOVASCULAR: Regular rate and rhythm. CHEST: Clear to auscultation bilaterally. ABDOMEN: Soft. Previous laparoscopic cholecystectomy incisions are healing well. She is nondistended. Positive bowel sounds. She is mildly tender in the mid epigastric periumbilical region. EXTREMITIES: No cyanosis, clubbing or edema. LABORATORY DATA: Sodium 136, potassium 3.7, chloride 102, bicarbonate 21, BUN 4, creatinine 0.8, glucose 82, AST is 13, lipase 1128, total bilirubin 0.4, calcium 9.4, phosphorus 3.8, magnesium 2.1, alkaline phosphatase 41, ALT 17, total protein 6.9, albumin 3.6, lactic acid level 1.1. WBC 4.7, hemoglobin 10.8, platelet count is 265. UCG was negative yesterday. UA is normal. ASSESSMENT AND PLAN: Recurrent nausea and vomiting. Overall, complex case as described above. The patient does have persistently elevated lipase suggesting the possibility of pancreatitis. Recent CT scan showed a normal appearing pancreas. The patient has no history of alcohol use. She has now had a cholecystectomy. There was no evidence of stones or ductal dilation on imaging or during surgery. Previously, she was taking narcotics postoperatively for her back surgery. She is now off this medication. I would recommend she proceed with an endoscopic ultrasound in the near future. This was done at a different facility for further evaluation of the pancreas to rule out possible chronic changes or duct abnormalities including pancreatic divisum. We have already discussed and tried pancreatic enzymes without much improvement. At this time, pain is less of an issue; however, the nausea and vomiting persist, we will [facility] [address] [place] [address] CONSULTATION Name: DONI LAI Room #: 433-I [facility] IN M.R.#: [id number] Admission: 06/28/19 Attend Phys: Kleber Zee Discharge: 07/02/19 Date of : 97 Report #: [id number] continue clear liquids today. Repeat lipase tomorrow. We will restart Reglan 10 mg q. 6 hours IV. Continue IV fluids. I also had a long discussion with the patient and her family today regarding nutrition. She has been losing weight, has not been eating due to her nausea and vomiting, may need to consider a nasojejunal tube in the near future, would prefer not the patient to be on TPN obviously. We will continue to monitor closely on a daily basis. Thank you for allowing me to participate in her care. <ELECTRONICALLY SIGNED> By: Per Morel MD 07/03/19 1213 1519 2100 Per Morel MD /nt
== END 2019-07-02 15:36 | disposition home or self-care (01) | DRG 438 ==
LOC: ER 18:34 → EROBS 21:27 → 4S 21:27
PROVIDERS: Internal Medicine; Physician Assistant; ADMIT Internal Medicine
PROC: 02HV33Z Insertion of Infusion Device into Superior Vena Cava, Percutaneous Approach (ICD-10-PCS; principal; 2019-07-01)
DX: K85.90 Acute pancreatitis without necrosis or infection, unspecified (principal); E43 Unspecified severe protein-calorie malnutrition; Q79.60 Ehlers-Danlos syndrome, unspecified; G43.909 Migraine, unspecified, not intractable, without status migrainosus; E03.9 Hypothyroidism, unspecified; I49.8 Other specified cardiac arrhythmias; Z88.0 Allergy status to penicillin; Z88.8 Allergy status to other drugs, medicaments and biological substances; Z91.040 Latex allergy status; Z68.27 Body mass index [BMI] 27.0-27.9, adult
CPT/HCPCS: 10100; 10195

== ENCOUNTER → 2020-02-05 | Outpatient (CLI) | payer BC, OTHER ==
[~2020-02-05] MED LIST changes: +PREDNISONE 20 M20 M1 PO
== END | disposition home or self-care (01) ==
LOC: GI 06:54
PROVIDERS: ATTEND Specialist
DX: R10.9 Unspecified abdominal pain (principal); R11.2 Nausea with vomiting, unspecified; R14.0 Abdominal distension (gaseous); Z11.59 Encounter for screening for other viral diseases; Z98.890 Other specified postprocedural states; Z79.899 Other long term (current) drug therapy; Z88.0 Allergy status to penicillin; Z91.040 Latex allergy status